=== PATIENT | female | born 1945 | race Caucasian/White ===

== ENCOUNTER 2017-04-03 09:33 | Outpatient (CLI) | payer MEDICARE ==
--- NOTE | 2017-04-03 13:46 | NM ---
WHOLE BODY BONE SCAN: Date: 04/03/17 HISTORY: Malignant neoplasm of the breast with bone metastasis. RADIOPHARMACEUTICAL: 32 mCi technetium-99m MDP injected intravenously. COMPARISON: 10/09/16. FINDINGS: Multiple osseous metastatic lesions are again seen with interval worsening manifested by increase in size of several of these lesions and interval development of some of the lesions, particularly in t he thoracic and lumbar spine. Tracer excretion through the kidneys is within normal limits. Metastat ic foci are noted in the spine, ribs, pelvis, bilateral femurs, and tibia. IMPRESSION: Interval worsening of osseous metastatic disease since 10/09/16. POS: [facility]
== END 2017-04-03 09:34 | disposition home or self-care (01) ==
LOC: NM 09:33
PROVIDERS: ATTEND Internal Medicine Hematology & Oncology
DX: C50.311 Malignant neoplasm of lower-inner quadrant of right female breast (principal); C18.4 Malignant neoplasm of transverse colon; C79.51 Secondary malignant neoplasm of bone
CPT/HCPCS: 78306; A9503

== ENCOUNTER 2017-04-27 13:02 | Day surgery (SDC) | payer MEDICARE ==
[2017-04-26 14:40] VITALS: BMI 23.2
[2017-04-27] MEDS ORDERED: Lidocaine 1% (PF) 30 ML VIAL ONE (13:29)
[2017-04-27] MEDS ORDERED: Bupivacaine/Epinephrine 0.25% 30 ML VIAL ONE (13:29)
[2017-04-27] MEDS ORDERED: Diprivan 40 ML ONE (13:39)
[2017-04-27] MEDS ORDERED: Ketorolac Tromethamine 30 MG/ML VIAL ONE (13:43)
[2017-04-27] MEDS ORDERED: CEFAZOLIN/Water 2 GM/20 ML SYRINGE ONE (13:43)
[2017-04-27 13:54] LABS: #Lymphocytes 1.1 thou/uL (1.20-3.40); #Monocytes 0.2 thou/uL (0.11-0.59); #Neutrophils 2.4 thou/uL (1.40-6.50); %Eosinophils 1.3 % (0.0-10.0); %Lymphocytes 29.2 % (21.0-51.0); %Monocytes 5.4 % (0.0-10.0); Hematocrit 32.3 % (36.0-47.0); Mean Platelet Volume 6.8 fL (7.4-10.4); Red Blood Cell (RBC) Count 3.06 mill/uL (4.20-5.40); White Blood Cell (WBC) Count 3.8 thou/uL (4.8-10.8)
[2017-04-27 14:23] LABS: Macrocytosis SLIGHT = 6-15 cells (100X) (0-5/hpf); Ovalocytes SLIGHT = 2-5 cells (100X) (0-1/hpf); Polychromasia SLIGHT = 2-3 cells (100X) (0-2/hpf)
[2017-04-27 14:28] LABS: Anion Gap 11 mmol/L (10-20); BUN (Urea Nitrogen) 23 mg/dL (9.8-20.1); Calc. Creatinine Clearance 61 mL/min (70-130); Calcium 9.1 mg/dL (7.8-10.44); Carbon Dioxide 27 mmol/L (23-31); Chloride 102 mmol/L (98-107); Estimated GFR-MDRD 63
[2017-04-27] MEDS ORDERED: Propofol 200 MG/20 ML VIAL ONE (14:31)
--- NOTE | 2017-04-27 14:41 | HP ---
CHIEF COMPLAINT: Metastatic cancer. HISTORY OF PRESENT ILLNESS: Patient is a 72-year-old white female. She is well known to myself from prior surgery. She has metastatic cancer to the bone. She does have a history of prior lung cancer , breast cancer and colon cancer. She requires ongoing chemotherapy. She no longer has reasonable p eripheral IV access and Mediport was requested for chemotherapy administration. PAST MEDICAL HISTORY: 1. Hypertension. 2. History of lung cancer in 2003, treated with chemoradiation. 3. History of right breast cancer in 2012 and 2014. 4. Cataracts. PAST SURGICAL HISTORY: 1. Anal fissure surgery. 2. Cataract surgery in her left eye. 3. Right breast lumpectomy, sentinel node biopsy in 09/2012 4. Right mastectomy with axillary node dissection in 2014. CURRENT MEDICATIONS: Include amlodipine, flecainide, metoprolol, sertraline, tramadol, and trazodone . ALLERGIES: No known drug allergies. SOCIAL HISTORY: She is . She has a sister present at bedside. She formerly smoked but quit in 1996. She has three children, one of whom is . 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 PHYSICAL EXAMINATION: VITAL SIGNS: She is afebrile. Vital signs within normal limits. GENERAL: She is a well-developed, well-nourished, pleasant, elderly female resting in bed in no acut e distress. She is alert and oriented x3. HEENT: Unremarkable. NECK: Supple, without mass or tenderness. LUNGS: Clear to auscultation throughout. CARDIAC: Regular rate and rhythm without murmur. ABDOMEN: Benign. EXTREMITIES: Unremarkable. ASSESSMENT: Patient with metastatic cancer. PLAN: Mediport placement for chemotherapy administration. I have discussed the operation in detail with the patient as well as potential risks. She understands and agrees to proceed with surgery at t his time.
--- NOTE | 2017-04-27 15:35 | RAD ---
EXAM: ONE VIEW CHEST: COMPARISON: 08/02/15, 01/21/17. FINDINGS: Right-sided MediPort catheter with distal tip projecting over the superior vena cava. Normal cardiac silhouette. The pulmonary vessels are slightly prominent. Stable appearance of the right hilum wit h mild right hilar fullness. There is blunting of the left costophrenic angle, likely due to chronic change. A small effusion may be present. There is no pneumothorax. Stable healing posterior left rib fracture. IMPRESSION: 1. Left side pleural effusion. 2. Right hilar mass with adjacent right upper lobe/right perihilar parenchymal changes. 3. Right-sided MediPort catheter. No pneumothorax. POS: [facility]
--- NOTE | 2017-04-29 13:13 | OP ---
DATE OF PROCEDURE: 04/27/2017 PREOPERATIVE DIAGNOSIS: Metastatic cancer to the bone. POSTOPERATIVE DIAGNOSIS: Metastatic cancer to the bone. OPERATION PERFORMED: Placement of right subclavian low profile power compatible MediPort. SURGEON: Lyle Owen M.D. ANESTHESIA: Total intravenous anesthesia with local using 0.25% Marcaine with epinephrine. INDICATIONS: The patient is a 72-year-old white female. She has a history of lung cancer, breast ca ncer, and colon cancer. She was recently found to have metastatic disease to bone and is undergoing chemotherapy for this. She no longer has a peripheral IV access and MediPort placement is requested for chemotherapy administration. DESCRIPTION OF OPERATION: Informed consent was obtained. The patient was taken to the operating philippe m where total intravenous anesthesia was obtained with the patient in supine position. Right pericla vicular area was prepped with ChloraPrep and draped in sterile fashion. She was placed into [place] n[place] position. Local anesthetic was infiltrated and a large gauge needle was passed under the clavi alexis in the subclavian vein on the initial pass. Guidewire was passed through the needle and fluorosc opically confirmed to enter the superior vena cava. Additional local anesthetic was infiltrated and a transverse incision was created based on needle insertion site. Subcutaneous pocket was dissected inferiorly. Introducer dilator was passed over the guidewire. Catheter was passed through the intro ducer and the introducer was removed in the usual peel-apart fashion. Catheter tip was positioned at the atrial caval junction and the catheter was trimmed to appropriate length and secured to the lock ing hub of the port. The MediPort was secured to the pectoral fascia with 2 interrupted sutures of 3 -0 Prolene. The wound was closed in layers with 3-0 and 4-0 Monocryl. Dermabond was placed external ly. The port aspirated blood freely and was flushed with heparinized saline. Post-procedure chest x -ray documents good position of the port and catheter. There were no complications. The patient alexei erated the procedure well and was taken to the recovery room in stable condition.
== END 2017-04-27 16:00 | disposition home or self-care (01) ==
LOC: SDC 13:02
PROVIDERS: ATTEND Specialist
PROC: 05H533Z Insertion of Infusion Device into Right Subclavian Vein, Percutaneous Approach (ICD-10-PCS; principal; 2017-04-27)
PROC: B516ZZA Fluoroscopy of Right Subclavian Vein, Guidance (ICD-10-PCS; 2017-04-27)
DX: C79.51 Secondary malignant neoplasm of bone (principal); C34.90 Malignant neoplasm of unspecified part of unspecified bronchus or lung; Z85.3 Personal history of malignant neoplasm of breast; Z85.038 Personal history of other malignant neoplasm of large intestine; Z90.11 Acquired absence of right breast and nipple; Z88.5 Allergy status to narcotic agent; Z87.891 Personal history of nicotine dependence
CPT/HCPCS: 36561; 71010; 80048; 85025; C1788; J0131; J1642; J1885; J2001; J2704

== ENCOUNTER 2017-05-07 15:36 | Emergency (ER) | payer MEDICARE ==
--- NOTE | 2017-05-07 16:46 | RAD ---
1 VIEW PELVIS: Date: 05/07/17 HISTORY: Fall 1 week ago. Pain. COMPARISON: 05/07/16. FINDINGS/IMPRESSION: Suboptimal evaluation of the left and right femoral neck due to patient position. Dedicated hip radio graphs are recommended if clinically warranted. Sacral ala is preserved. Left bony pelvis appears int act. Questionable fracture involving the right inferior pubic ramus. Possible nondisplaced fracture i nvolving the right superior pubic ramus, near the symphysis pubis. Correlate clinically. Better inter rogation with CT if clinically warranted. POS: [facility]
[2017-05-07] MEDS ORDERED: Acetaminophen/Codeine 30-300mg Tablet ONE (17:01)
[2017-05-07] MEDS ORDERED: CEFAZOLIN 1 GM VIAL ONE (17:22)
--- NOTE | 2017-05-07 18:02 | CT ---
CT FACE WITHOUT CONTRAST: Date: 05/07/17 HISTORY: Fall 1 week ago. Injury. COMPARISON: None. FINDINGS: Nasal bones are intact. The orbital floors, orbital roofs, the medial orbital catalan, lateral orbital catalan, zygoma, and zygomatic arch are all intact. Frontal sinuses, maxillary sinuses, and mastoids ar e all clear. Pterygoid plates are intact. Mandible is intact. IMPRESSION: No acute fracture of the face. POS: [facility]
--- NOTE | 2017-05-07 18:06 | CT ---
CT PELVIS WITHOUT CONTRAST: Date: 05/07/17 HISTORY: Fall 1 week ago. FINDINGS: There is extensive mixed lytic and blastic osseous metastatic disease. This involves L5, S1, bilatera l ilium, S2, S3, S4, and S5. No displaced fracture is appreciated. Nondisplaced right sacral zone 2 f racture is present at S1. Metastatic involvement of the ischium bilaterally and femoral necks are als o present. There is loss of normal fatty attenuation of the right posterior paraspinal musculature concerning fo r soft tissue metastatic disease. Epidural spread of tumor evaluation is limited on this examination. IMPRESSION: 1. Extensive metastatic disease throughout the pelvis with nondisplaced pathologic fracture of S1 th rough zone 2. 2. Near complete replacement of the interdigitating fat of the right posterior paraspinal musculatur e concerning for soft tissue deposit of metastatic disease versus hematoma. There is also some edema along the right quadratus lumborum muscle muscle with retroperitoneal fluid which is likely traumatic muscle tear. 3. Patient is at high risk for pathologic fracture through the pedicle of L5 on the left with near co mplete lytic metastasis. POS: [facility]
--- NOTE | 2017-05-07 18:14 | CT ---
CT BRAIN WITHOUT CONTRAST: HISTORY: Fall one week ago. COMPARISON: CT of the brain 01/27/2017. FINDINGS: No acute hemorrhage or infarct. Moderate microvascular ischemic changes. Paranasal sinuses and mastoids are clear. IMPRESSION: No acute intracranial abnormality. No significant change. POS: [facility]
== END 2017-05-07 19:00 | disposition home or self-care (01) ==
LOC: SCSER 15:36
DX: R10.2 Pelvic and perineal pain (principal); C50.919 Malignant neoplasm of unspecified site of unspecified female breast; H40.9 Unspecified glaucoma; H54.40 Blindness, one eye, unspecified eye; Z85.118 Personal history of other malignant neoplasm of bronchus and lung; Z87.891 Personal history of nicotine dependence; Z79.899 Other long term (current) drug therapy; W18.30XA Fall on same level, unspecified, initial encounter; Y93.01 Activity, walking, marching and hiking
CPT/HCPCS: 70450; 70486; 72170; 72192; 80053; 82248; 83615; 84100; 84550; J0690

== ENCOUNTER 2017-07-03 10:53 | Day surgery (SDC) | payer MEDICARE ==
[2017-07-03] MEDS ORDERED: Sodium Chloride 0.9% 30 ML ONE (11:09)
[2017-07-03] MEDS ORDERED: diphenhydrAMINE 25 MG CAP PO SCH (11:15)
[2017-07-03] MEDS ORDERED: Acetaminophen 500 MG TAB PO SCH (11:15)
[2017-07-03 15:52] VITALS: TEMP 97.9
[2017-07-03 17:51] VITALS: BP 205/81
[2017-07-03 18:21] LABS: #Eosinphils 0.1 thou/uL (0.0-0.7); #Lymphocytes 0.8 thou/uL (1.20-3.40); #Monocytes 0.2 thou/uL (0.11-0.59); #Neutrophils 1.1 thou/uL (1.40-6.50); %Basophils 0.9 % (0.0-1.0); %Eosinophils 4.4 % (0.0-10.0); %Lymphocytes 35.5 % (21.0-51.0); %Monocytes 8.7 % (0.0-10.0); %Neutrophils 50.4 % (42.0-75.0); Hemoglobin 10.6 g/dL (12.0-16.0); Mean Corpuscular HGB CONC 32.3 g/dL (32.0-36.0); Mean Corpuscular Hemoglobin 31.8 pg (27.0-31.0); Mean Corpuscular Volume 98.4 fl (81.0-99.0); Mean Platelet Volume 7.8 fL (7.4-10.4); Platelet Count 158 thou/uL (130-400); RBC Distribution Width 15.4 % (11.5-14.5); Red Blood Cell (RBC) Count 3.33 mill/uL (4.20-5.40); White Blood Cell (WBC) Count 2.3 thou/uL (4.8-10.8)
== END 2017-07-03 17:58 | disposition home or self-care (01) ==
LOC: ONC/OP 10:53
PROVIDERS: ATTEND Internal Medicine Hematology & Oncology
PROC: 30233N1 Transfusion of Nonautologous Red Blood Cells into Peripheral Vein, Percutaneous Approach (ICD-10-PCS; principal; 2017-07-03)
DX: D64.9 Anemia, unspecified (principal); D69.6 Thrombocytopenia, unspecified; C79.51 Secondary malignant neoplasm of bone; I10 Essential (primary) hypertension; H54.7 Unspecified visual loss; Z88.5 Allergy status to narcotic agent; Z79.899 Other long term (current) drug therapy; Z98.42 Cataract extraction status, left eye; Z90.11 Acquired absence of right breast and nipple; Z98.890 Other specified postprocedural states; Z87.891 Personal history of nicotine dependence; Z85.3 Personal history of malignant neoplasm of breast; Z85.118 Personal history of other malignant neoplasm of bronchus and lung; Z85.038 Personal history of other malignant neoplasm of large intestine; Z92.21 Personal history of antineoplastic chemotherapy; Z92.3 Personal history of irradiation
CPT/HCPCS: 36430; 85025; 86850; 86870; 86900; 86901; 86905; 86922; 99211; A4216; G0463; J1642; P9016

== ENCOUNTER 2017-07-24 10:21 | Day surgery (SDC) | payer MEDICARE ==
[2017-07-24] MEDS ORDERED: diphenhydrAMINE 25 MG CAP PO SCH (10:45)
[2017-07-24] MEDS ORDERED: Acetaminophen 500 MG TAB PO SCH (10:45)
[2017-07-24] MEDS ORDERED: Sodium Chloride 0.9% 20 ML ONE (10:49)
[2017-07-24 16:54] VITALS: BP 174/76; TEMP 98.1
[2017-07-24 18:46] LABS: #Eosinphils 0.1 thou/uL (0.0-0.7); #Lymphocytes 0.9 thou/uL (1.20-3.40); #Monocytes 0.2 thou/uL (0.11-0.59); #Neutrophils 1.5 thou/uL (1.40-6.50); %Basophils 0.7 % (0.0-1.0); %Eosinophils 2.2 % (0.0-10.0); %Lymphocytes 31.5 % (21.0-51.0); %Monocytes 8.8 % (0.0-10.0); %Neutrophils 56.8 % (42.0-75.0); Anisocytosis SLIGHT = 6-15 cells (100X) (0-5/hpf); Hemoglobin 9.4 g/dL (12.0-16.0); MDiff Complete? YES; Macrocytosis SLIGHT = 6-15 cells (100X) (0-5/hpf); Mean Corpuscular HGB CONC 33.1 g/dL (32.0-36.0); Mean Corpuscular Volume 99.6 fl (81.0-99.0); Mean Platelet Volume 7.4 fL (7.4-10.4); Ovalocytes SLIGHT = 2-5 cells (100X) (0-1/hpf); PLT Morphology Comment Appears Decreased; Platelet Count 118 thou/uL (130-400); Polychromasia SLIGHT = 2-3 cells (100X) (0-2/hpf); RBC Distribution Width 15.4 % (11.5-14.5); Red Blood Cell (RBC) Count 2.86 mill/uL (4.20-5.40); White Blood Cell (WBC) Count 2.7 thou/uL (4.8-10.8)
== END 2017-07-24 17:14 | disposition home or self-care (01) ==
LOC: ONC/OP 10:21
PROVIDERS: ATTEND Internal Medicine Hematology & Oncology
PROC: 30233N1 Transfusion of Nonautologous Red Blood Cells into Peripheral Vein, Percutaneous Approach (ICD-10-PCS; principal; 2017-07-24)
DX: D64.9 Anemia, unspecified (principal); D69.6 Thrombocytopenia, unspecified; C79.51 Secondary malignant neoplasm of bone; I10 Essential (primary) hypertension; Z88.5 Allergy status to narcotic agent; Z79.899 Other long term (current) drug therapy; Z98.42 Cataract extraction status, left eye; Z90.11 Acquired absence of right breast and nipple; Z98.890 Other specified postprocedural states; Z85.3 Personal history of malignant neoplasm of breast; Z85.118 Personal history of other malignant neoplasm of bronchus and lung; Z85.038 Personal history of other malignant neoplasm of large intestine; Z92.21 Personal history of antineoplastic chemotherapy; Z87.891 Personal history of nicotine dependence
CPT/HCPCS: 36430; 85025; 86850; 86870; 86880; 86900; 86901; 86905; 86922; 86972; A4216; P9016

== ENCOUNTER 2017-08-08 10:13 | Outpatient (CLI) | payer MEDICARE ==
--- NOTE | 2017-08-08 15:25 | NM ---
WHOLE BODY BONE SCAN: DATE: 08/08/17. HISTORY: Malignant neoplasm of lower inner quadrant right breast. Malignant neoplasm of transverse colon. Os seous metastatic disease. COMPARISON: 04/03/17. RADIOPHARMACEUTICAL: 28 mCi Technetium 99m labeled MDP, IV. FINDINGS: Again noted are abnormal areas of increased uptake of radiotracer seen within the region of the lower cervical, thoracic, and lumbar spine as well as lesions again involving multifocal bilateral ribs, p dale, bilateral femurs with faint uptake seen in the mid shaft of each tibia with findings most cons istent with osseous metastatic disease. The number of abnormal areas uptake of radiotracer are simil ar to the prior study. There is a slightly greater degree of increased uptake involving the L1 verte bral body compared to the prior study. Normal uptake is again seen within the kidneys and in the decompressed urinary bladder. IMPRESSION: Overall stable osseous metastatic disease with multifocal sites of abnormal uptake of radiotracer unc hanged in number compared to the prior study; although, there is slightly greater increased intensity of uptake of radiotracer within the L1 vertebral body. POS: [facility]
== END 2017-08-08 10:14 | disposition home or self-care (01) ==
LOC: NM 10:13
PROVIDERS: ATTEND Internal Medicine Hematology & Oncology
DX: C79.51 Secondary malignant neoplasm of bone (principal); C50.311 Malignant neoplasm of lower-inner quadrant of right female breast; C18.4 Malignant neoplasm of transverse colon
CPT/HCPCS: 78306; A9503

== ENCOUNTER 2017-08-14 10:45 | Day surgery (SDC) | payer MEDICARE ==
[2017-08-14] MEDS ORDERED: Acetaminophen 500 MG TAB PO SCH (11:15)
[2017-08-14] MEDS ORDERED: diphenhydrAMINE 25 MG CAP PO SCH (11:15)
[2017-08-14 20:40] VITALS: BP 180/80; TEMP 97.9
[2017-08-14 21:11] LABS: #Eosinphils 0.1 thou/uL (0.0-0.7); #Lymphocytes 0.7 thou/uL (1.20-3.40); #Monocytes 0.2 thou/uL (0.11-0.59); #Neutrophils 1.1 thou/uL (1.40-6.50); %Basophils 0.9 % (0.0-1.0); %Eosinophils 2.4 % (0.0-10.0); %Lymphocytes 33.1 % (21.0-51.0); %Monocytes 10.2 % (0.0-10.0); %Neutrophils 53.4 % (42.0-75.0); Hemoglobin 9.4 g/dL (12.0-16.0); Mean Corpuscular HGB CONC 34.1 g/dL (32.0-36.0); Mean Corpuscular Hemoglobin 32.4 pg (27.0-31.0); Mean Corpuscular Volume 94.9 fl (81.0-99.0); Mean Platelet Volume 6.8 fL (7.4-10.4); PLT Morphology Comment Appears Decreased; Platelet Count 106 thou/uL (130-400); White Blood Cell (WBC) Count 2.1 thou/uL (4.8-10.8)
== END 2017-08-14 20:42 | disposition home or self-care (01) ==
LOC: ONC/OP 10:45
PROVIDERS: ATTEND Internal Medicine Hematology & Oncology
PROC: 30233N1 Transfusion of Nonautologous Red Blood Cells into Peripheral Vein, Percutaneous Approach (ICD-10-PCS; principal; 2017-08-14)
DX: C79.51 Secondary malignant neoplasm of bone (principal); D63.0 Anemia in neoplastic disease; I10 Essential (primary) hypertension; Z90.11 Acquired absence of right breast and nipple; Z98.890 Other specified postprocedural states; Z85.118 Personal history of other malignant neoplasm of bronchus and lung; Z85.3 Personal history of malignant neoplasm of breast; Z92.21 Personal history of antineoplastic chemotherapy; Z87.891 Personal history of nicotine dependence
CPT/HCPCS: 36430; 85025; 86850; 86870; 86880; 86900; 86901; 86905; 86922; P9016

== ENCOUNTER 2017-11-19 09:32 | Outpatient (CLI) | payer MEDICARE ==
--- NOTE | 2017-11-19 15:36 | NM ---
WHOLE BODY BONE SCAN: Date: 11/19/17 HISTORY: Malignant neoplasm of lower inner quadrant of right breast, Bone mets. RADIOPHARMACEUTICAL: 31 mCi technetium-99m MDP injected intravenously. COMPARISON: 08/08/17. FINDINGS: Multiple foci of abnormally increased tracer localization in the skeleton, including the thoracolumba r spine, pelvis, ribs, bilateral femurs, and left proximal tibia are again noted and stable. No new f oci of abnormal increased tracer localization is seen. Tracer excretion through the kidneys is within normal limits. IMPRESSION: Stable exam with multiple osseous metastases. POS: [facility]
== END 2017-11-19 09:33 | disposition home or self-care (01) ==
LOC: NM 09:32
PROVIDERS: ATTEND Internal Medicine Hematology & Oncology
DX: C50.919 Malignant neoplasm of unspecified site of unspecified female breast (principal); C79.51 Secondary malignant neoplasm of bone
CPT/HCPCS: 78306; A9503

== ENCOUNTER 2017-12-24 16:00 | Outpatient (CLI) | payer MEDICARE ==
[~2017-12-24 16:00] MED LIST: Iopamidol 370 76% 100 ML VIAL ONE
--- NOTE | 2017-12-24 17:19 | CT ---
CTA OF THE CHEST: Date: 12/24/17 COMPARISON: 02/27/14. HISTORY: Shortness of breath and weakness. History of lung and bone scan. TECHNIQUE: Multiple contiguous axial images were obtained in a CTA of the chest with contrast per pulmonary embo lism protocol. 3D oblique MIP reformats and direct coronal reformats were performed. FINDINGS: The pulmonary arteries are well opacified without filling defects to suggest pulmonary emboli. Global cardiomegaly is seen. There are calcifications in the coronary arteries and aorta. No hilar or media stinal lymphadenopathy are seen. There is a moderate right pleural effusion. A small left pleural effusion is seen. Adjacent atelectas is is seen. There is a small, peripheral, 4.0 mm nodule on image 71 of 123 in the left lower lobe. No other pulmonary nodules are seen. There is stable soft tissue density in the right hilar region whic h may represent scarring or residual malignancy in this location. There are multiple sclerotic lesions in the visualized bones. These have progressed since the prior e xamination and are consistent with osseous metastatic disease. The chest wall soft tissues are unrema rkable. The visualized subdiaphragmatic structures are unremarkable. IMPRESSION: 1. No evidence of pulmonary thromboembolism. 2. Bilateral pleural effusions, right greater than left. 3. Diffuse osseous metastatic disease. 4. Soft tissue fullness in the right hilar region may represent scarring or residual malignancy in t his location. The former is favored as this has remained stable compared to the exam from 2014. POS: [facility]
== END 2017-12-24 16:01 | disposition home or self-care (01) ==
LOC: CT 16:00
PROVIDERS: ATTEND Internal Medicine Cardiovascular Disease
DX: R06.02 Shortness of breath (principal); J90 Pleural effusion, not elsewhere classified; M89.9 Disorder of bone, unspecified
CPT/HCPCS: 71275

== ENCOUNTER 2018-02-21 17:17 | Emergency (ER) | payer MEDICARE ==
[2018-02-21] MEDS ORDERED: Ondansetron HCl/PF 4 MG/2 ML Vial ONE (18:12)
[2018-02-21 18:21] LABS: #Eosinphils 0.1 thou/uL (0.0-0.7); #Lymphocytes 0.7 thou/uL (1.20-3.40); #Monocytes 0.5 thou/uL (0.11-0.59); %Basophils 0.2 % (0.0-1.0); %Eosinophils 2.8 % (0.0-10.0); %Lymphocytes 15.4 % (21.0-51.0); %Monocytes 11.1 % (0.0-10.0); %Neutrophils 70.4 % (42.0-75.0); Hemoglobin 9.1 g/dL (12.0-16.0); Mean Corpuscular HGB CONC 34.4 g/dL (32.0-36.0); Mean Corpuscular Hemoglobin 34.3 pg (27.0-31.0); Mean Corpuscular Volume 99.7 fL (78.0-98.0); Platelet Count 172 thou/uL (130-400); RBC Distribution Width 13.9 % (11.5-14.5); Red Blood Cell (RBC) Count 2.65 mill/uL (4.20-5.40); White Blood Cell (WBC) Count 4.2 thou/uL (4.8-10.8)
[2018-02-21 18:39] LABS: Bilirubin Negative (Negative); Blood, Urine Negative (Negative); Clarity CLOUDY (Clear); Glucose, Urine (Dipstick) Negative (Negative); Leukocyte Trace (Negative); Nitrite Negative (Negative); Protein, Urine (Dipstick) Negative (Neg-Trace); Specific Gravity, Urine 1.011 (1.002-1.036); Urobilinogen 0.2 mg/dL (0.2-1.0)
[2018-02-21 18:41] LABS: Bacteria/HPF None Seen HPF (None Seen); Hyaline Casts/LPF 0-3 HYALINE CAST LPF (0-3 Hyaline); Pathc Cast-AUWi Flag 0.72 (0-2.49); RBC/HPF 0-3 HPF (0-3); Squamous Epithelial 0-3 HPF (0-3)
[2018-02-21 18:42] LABS: ALT (SGPT) 7 U/L (8-55); AST (SGOT) 19 U/L (5-34); Albumin 3.8 g/dL (3.4-4.8); Alkaline Phosphatase 65 U/L (40-150); Anion Gap 13 mmol/L (10-20); BUN (Urea Nitrogen) 13 mg/dL (9.8-20.1); Bilirubin, Total 0.5 mg/dL (0.2-1.2); Calc. Creatinine Clearance 0 mL/min (70-130); Calcium 11.1 mg/dL (7.8-10.44); Carbon Dioxide 26 mmol/L (23-31); Chloride 98 mmol/L (98-107); Estimated GFR-MDRD 57; Globulin 3.6 g/dL (2.4-3.5); Glucose 100 mg/dL (80-115); Lipase 15 U/L (8-78); Potassium 4.1 mmol/L (3.5-5.1); Protein, Total 7.4 g/dL (6.0-8.3); Sodium 133 mmol/L (136-145)
--- NOTE | 2018-02-21 18:54 | CT ---
CT OF THE BRAIN WITHOUT CONTRAST 02/21/18 COMPARISON: 05/07/17. HISTORY: Fall last night and altered mental status. TECHNIQUE: Multiple contiguous axial images were obtained in a CT of the brain without contrast. FINDINGS: There are scattered hypodensities in the subcortical and periventricular white matter, likely seconda ry to small vessel ischemic disease. No large confluent infarction is seen. There is no evidence of h ydrocephalus, intracranial hemorrhage, or extra-axial fluid collection. The calvarium and overlying soft tissues are unremarkable. the visualized paranasal sinuses and masto id air cells are well aerated. IMPRESSION: No evidence of acute intracranial abnormality. POS: [facility]
--- NOTE | 2018-03-02 11:57 | EKG ---
Test Reason : AMS Blood Pressure : / mmHG Vent. Rate : 066 BPM Atrial Rate : 066 BPM P-R Int : 176 ms QRS Dur : 100 ms QT Int : 454 ms P-R-T Axes : 112 050 059 degrees QTc Int : 475 ms Normal sinus rhythm Nonspecific ST and T wave abnormality Abnormal ECG Confirmed by DIANA VILLAGRAN, DIOMEDES Marrufo ([id number]), book or script editor GAURI GUAJARDO ([id number]) on 03/02/2018 11:56:44 AM Referred By: DIANA Confirmed By:DIOMEDES ORTIZ MD
== END 2018-02-21 20:35 | disposition home or self-care (01) ==
LOC: ERS 17:17
DX: D64.9 Anemia, unspecified (principal); E86.0 Dehydration; N39.0 Urinary tract infection, site not specified; F41.9 Anxiety disorder, unspecified; F17.210 Nicotine dependence, cigarettes, uncomplicated; Z79.899 Other long term (current) drug therapy; I10 Essential (primary) hypertension; F03.90 Unspecified dementia, unspecified severity, without behavioral disturbance, psychotic disturbance, mood disturbance, and anxiety
CPT/HCPCS: 51701; 70450; 80053; 81003; 81015; 82140; 83690; 85025; 93005; 96361; 96374; 96375; A4353; J1642; J2405